=== PATIENT | male | born 1955 | race Caucasian/White ===

== ENCOUNTER 2018-10-29 12:17 | Observation (INO) ==
--- NOTE | 2018-10-29 12:36 | Emergency Department Note ---
ED Disposition Clinical Impression: Altered mental status Qualifiers: Altered mental status type: disorientation Qualified Code(s): R41.0 - Disorientation, unspecified Disposition: Admitted as Observation Condition on Discharge: Fair Referrals: Provider,Referral, [Referring] - - Critical Care Critical Care Time: No Attestation: On 10/29/18, the high probability of a clinically significant, sudden or life threatening deterioration of the following system(s) required my full and direct attention, intervention and personal management. The time I documented below is in addition to time spent performing reported procedures but includes the following listed in this critical care notation. Medical Decision Making - Elpidio Inquiry Pt receiving controlled substance: No Vital Signs: 10/29/18 12:17 10/29/18 12:18 10/29/18 13:17 Temperature 97.5 F L Temperature Source Oral Pulse Rate [Right Brachial] 95 H 102 H 82 Respiratory Rate 16 20 Blood Pressure [Right Arm] 110/75 122/79 102/72 L Blood Pressure Mean [Right Arm] 86 93 82 Blood Pressure Source [Right Arm] Automatic Cuff Automatic Cuff Blood Pressure Position [Right Arm] Sitting Sitting 02 Sat by Pulse Oximetry 97 96 98 Oxygen Delivery Method Room Air Room Air 10/29/18 14:21 Temperature Temperature Source Pulse Rate [Right Brachial] 94 H Respiratory Rate Blood Pressure [Right Arm] 122/88 Blood Pressure Mean [Right Arm] 99 Blood Pressure Source [Right Arm] Blood Pressure Position [Right Arm] 02 Sat by Pulse Oximetry 96 Oxygen Delivery Method Room Air - Lab Data Lab Results 10/29/18 12:45: WBC 9.3, RBC 4.99, Hgb 14.0 L, Hct 44.7, MCV 89.7, MCH 28.1, MCHC 31.4 L, RDW 15.2, Plt Count 244, MPV 8.1, Neut % (Auto) 79.8, Lymph % (Auto ) 13.4, [place] % (Auto) 6.1, Eos % (Auto) 0.3, Baso % (Auto) 0.3, Neut # (Auto) 7.4, Lymph # (Auto) 1.2, [place] # (Auto) 0.6, Eos # (Auto) 0.0, Baso # (Auto) 0.0 10/29/18 12:45: Sodium 140, Potassium 3.8, Chloride 105, Carbon Dioxide 24, Anion Gap 14.8, BUN 9, Creatinine 0.64 L, Estimated Creat Clear 80, Estimated GFR 126, Est GFR ( Amer) 152, Glucose 63 L, Calcium 8.8, Total Bilirubin 0.2, AST 15, ALT 14, Alkaline Phosphatase 136 H, Total Protein 7.3, Albumin 3.5, Globulin 3.8 H, Albumin/Globulin Ratio 0.9 L, Plasma/Serum Alcohol 0 10/29/18 12:45: Troponin I < 0.02 10/29/18 13:40: Urine Color Yellow, Urine Appearance Clear, Urine pH 5.5, Ur Specific [place] 1.020, Urine Protein Negative, Urine Glucose (UA) Negative, Urine Ketones Trace, Urine Blood Negative, Urine Nitrate Negative, Urine Bilirubin Negative, Urine Urobilinogen 0.2, Ur Leukocyte Esterase Negative, Urine RBC None, Urine WBC Occasional, Ur Squamous Epith Cells Occasional, Urine Bacteria Trace 10/29/18 13:40: Urine Opiates Screen Negative, Urine Methadone Screen Negative, Ur Barbituates Screen Negative, Ur Phencyclidine Scrn Negative, Ur Amphetamines Screen Negative, U Benzodiazepines Scrn Negative, Urine Cocaine Screen Negative, U Marijuana (THC) Screen Negative 10/29/18 14:20: POC Glucose 142 H Result diagrams: 10/29/18 12:45 10/29/18 12:45 Orders (Tests/Meds): ED MEDICATIONS Discontinued Medications Generic Name Dose Route Start Last Admin Trade Name Freq PRN Reason Stop Dose Admin Dextrose 50 ml 10/29/18 13:23 10/29/18 13:30 Dextrose 50% 50ml Syringe IVP 10/29/18 13:24 50 ml ONCE ONE Administration - Radiology Data #1 Image(s): Chest Image Reviewed: Yes I have reviewed radiologist's interpretation Preliminary Findings: Normal/NAD - CT Data CT Scan: Head Time Received: 13:[address] Reviewed: Yes: I have viewed the radiologist's interpretation Findings Narrative: FINDINGS: No midline shift or mass effect is evident. No acute intracranial hemorrhage. There is moderate dilatation of the lateral ventricles and 3rd ventricle. The 4th ventricle is not dilated. 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 There is mild mucosal thickening of the ethmoid sinuses. No acute calvarial abnormalities. No mastoid effusion. IMPRESSION: 1. 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 2. No acute intracranial hemorrhage or large territorial infarcts evident. Dictated by: Naman Larkin MD 10/29/2018 12:40 Electronically signed by Naman Larkin MD in [place] 10/29/2018 12:40 - ECG Data Tracing #1 EKG interpreted by Jeffrey Black MD: Rhythm: sinus Rate: 95 [place]: normal Ectopy: none Conduction: QTC [address] Segment Changes: none T Wave Changes: none Q Waves: none No evidence of acute ischemia or injury - Physician Consults Physician Consulted: Garland Sepulveda Time: 14:40 Reason -: Admission Comment/Response: Agrees to admit the patient to the hospital. We discussed the patient's clinical information, including history, exam, laboratory and radiolog y results and ED course. Per hospital procedure, I will write temporary bridge inpatient orders on the patient. Specific orders requested by the admitting physician: Neurochecks, fingerstick before meals and at bedtime, repeat chemistry profile in the morning, hold gabapentin. - Reevaluation(s) Time: 14:25 Reevaluation #1: Mental status unchanged. Speech is mumbling and slightly slurred. States that he is at [facility] in [place]. Medical Decision Narrative: Paperwork sent with patient from [facility] does not include any prior diagnoses. [facility] personnel contacted, they relayed his prior diagnoses per his paperwork at their facility, which does not include hydrocephalus. Felicity cisneros whether hydrocephalus on his CT scan is a new discovery. Patient has not had prior head CT scans here. [facility] portal accessed to see if the patient had previous admissions there with any previous had CT scans. CT scan of the head documented at [facility] in July 2016 showed enlarged lateral ventricles unchanged from a previous scan also done third facility. Therefore, this finding is chronic. General Adult HPI - General Chief complaint: Weakness Stated complaint: slurred speech Time Seen by Provider: 10/29/18 12:35 Mode of Arrival: EMS Limitations: No Limitations Description of Symptoms (Recalled from ER Triage Doc. by RN): Ptb brought in from [facility] with complaints of slurred speech. EMS advised stroke scale negative and advises pt wanted to bring some beer with him, pt denies any pain or complaints at this. Advises he does feel like his speech is a little slow at the moment. PT admits to drinking alcohol. - History of Present Illness HPI narrative: Sent by ambulance from [facility]. Staff report that at 11:00 medications today the patient had slurred speech and seemed confused/disoriented. The patient realizes that he feels confused. Staff report that at 8:00 medications he seemed fine. He denies any other current complaints except feeling tired. Denies any pain. Denies any recent illness including fever, URI symptoms, vomiting, diarrhea. He admits to drinking 2 beers last night. Says he has not had alcohol to drink today, but apparently told EMS personnel that he wanted to bring beer with him to the hospital. - Related Data Allergies Allergy/AdvReac Type Severity Reaction Status Date / Time No Known Allergies Allergy Verified 10/29/18 12:24 [facility] History - Hepatitis A Screen Drug use history?: No High risk sexual behaviors?: No History of sexually transmitted infection?: No Currently employed?: No Childcare worker?: No Do you have indoor plumbing?: Yes Do you have electricity?: Yes Attestation statement:: This patient has been screened for Hepatitis A risk factors. I have reviewed the patient's past medical history: Yes ROS Obtained: Yes All systems reviewed & no additional complaints - Constitutional Constitutional: Reports fatigue, Denies fever(s) - Eyes Eyes: Denies blurry vision, Denies change in vision, Denies diplopia, Reports requires corrective lenses (Reading glasses) - ENT Ears, Nose, Mouth, and Throat: Denies nasal discharge, Denies sore throat - Cardiovascular Cardiovascular: Denies chest pain - Respiratory Respiratory: No cough, No dyspnea - Gastrointestinal Gastrointestingal: Denies: abdominal pain, diarrhea, nausea, vomiting - Musculoskeletal Musculoskeletal: Denies back pain, Denies neck pain - Neurologic Neurologic: Reports confusion, Denies focal weakness, Denies headache(s), Denies numbness Physical Exam - General General appearance: alert, in no apparent distress - Head Head exam: atraumatic, normocephalic, normal inspection - Eye Eye exam: Present: PERRL, nystagmus (lateral, bilaterally) - ENT ENT exam: Present: normal exam, normal oropharynx - Neck Neck exam: Present: normal inspection, full ROM, trachea midline. Absent: meningismus - Chest Chest inspection: Present: normal inspection, symmetric chest wall rise - Respiratory Respiratory exam: Present: normal lung sounds bilaterally. Absent: respiratory distress - Cardiovascular Cardiovascular exam: Present: regular rate, normal rhythm, normal heart sounds - Abdominal Exam Abdominal exam: Present: soft, normal bowel sounds. Absent: distention, tenderness, guarding, rebound - Extremities Exam Extremities exam: Present: other (right BKA) - Neurological Exam Neurological exam: Present: alert, CN II-XII intact, other (oriented to person, year, month. Place = hospital, in [place]). Absent: motor sensory deficit - Psychiatric Psychiatric exam: Present: normal affect, normal mood - Skin Skin exam: Present: warm, dry
[2018-10-29 12:59] LABS: Basophils % 0.3 % (0.1-2.0); Eosinophils % 0.3 % (0.1-12.0); Hematocrit 44.7 % (42.0-52.0); Lymphocytes # 1.2 K/mm3 (0.7-4.5); Lymphocytes % 13.4 % (10-50); Mean Corpuscular HGB Conc 31.4 g/dL (31.8-35.4); Mean Corpuscular Volume 89.7 fl (80-94); Mean Platelet Volume 8.1 fl (7.4-10.4); Monocytes # 0.6 K/mm3 (0.1-1.0); Monocytes % 6.1 % (1.7-9.3); Neutrophils # 7.4 K/mm3 (1.8-7.8); Neutrophils % 79.8 % (37.0-80.0); Platelet Count 244 K/mm3 (142-424); Red Blood Count 4.99 M/mm3 (4.60-6.20); Red Cell Distribution Width 15.2 % (11.5-17.5); White Blood Count 9.3 K/mm3 (4.8-10.8)
[2018-10-29 13:17] LABS: Albumin Level 3.5 gm/dL (3.4-5.0); Albumin/Globulin Ratio 0.9 (1.1-1.8); Anion Gap 14.8 mEq/L (5-15); Bilirubin,Total 0.2 mg/dL (0.2-1.0); Calcium 8.8 mg/dL (8.5-10.1); Globulin 3.8 gm/dl (1.3-3.2); Total Protein,Serum 7.3 gm/dL (6.4-8.2)
[2018-10-29 13:47] LABS: Microscopic, Urine URINE MICROSCOPIC (MICROSCOPIC)
[2018-10-29 13:51] LABS: Appearance,Urine CLEAR (Clear); Bilirubin,Urine Negative (Negative); Blood, Urine Negative (Negative); Color,Urine YELLOW (Yellow); Glucose,Urine (UA) Negative (Negative); Ketones,Urine TRACE (Negative); Leukocyte Esterase,Urine Negative (Negative); PH,Urine 5.5 (5.0-8.5); Protein,Urine Negative (Negative); Urobilinogen,Urine 0.2 EU/dl (0.2)
[2018-10-29 13:59] LABS: Amphetamine/Metha Screen,Urine Negative ng/mL (<1000); Barbiturates Screen,Urine Negative ng/mL (<200); Benzodiazepines Screen,Urine Negative ng/mL (<200); Cannabinoid Screen,Urine Negative ng/mL (<50); Cocaine Screen,Urine Negative ng/mL (<300); Methadone Screen,Urine Negative ng/mL (<300); Opiate Screen,Urine Negative ng/mL (<300); Phencyclidine Screen,Urine Negative ng/mL (<25)
[2018-10-29 14:16] LABS: Bacteria,Urine Trace /lpf; Squamous Epithelial Cell,Urine Occasional #/hpf (0-5); WBC,Urine Occasional #/hpf (0-3)
--- NOTE | 2018-10-29 20:30 | History & Physical Report ---
*Admission Date: 10/29/18 *Chief complaint: altered mental status *History of present illness: this wm fron local snf who was noted to have change in mental status w/o trauma or fever and no known drug ingestion -he was seen in the ed ental status unchanged. Speech is mumbling and slightly slurred. States that he is at [facility] in [place]. Medical Decision Narrative: Paperwork sent with patient from [facility] does not include any prior diagnoses. [facility] personnel contacted, they relayed his prior diagnoses per his paperwork at their facility, which does not include hydrocephalus. Uncertain whether hydrocephalus on his CT scan is a new discovery. Patient has not had prior head CT scans here. [facility] portal accessed to see if the patient had previous admissions there with any previous had CT scans. CT scan of the head documented at [facility] in July 2016 showed enlarged lateral ventricles unchanged from a previous scan also done third facility. Therefore, this finding is c Chief complaint: Weakness Stated complaint: slurred speech Time Seen by Provider: 10/29/18 12:35 Mode of Arrival: EMS Limitations: No Limitations Description of Symptoms (Recalled from ER Triage Doc. by RN): Ptb brought in from [facility] with complaints of slurred speech. EMS advised stroke scale negative and advises pt wanted to bring some beer with him, pt denies any pain or complaints at this. Advises he does feel like his speech is a little slow at the moment. PT admits to drinking alcoho Sent by ambulance from [facility]. Staff report that at 11:00 medications today the patient had slurred speech and seemed confused/disoriented. The patient realizes that he feels confused. Staff report that at 8:00 medications he seemed fine. He denies any other current complaints except feeling tired. Denies any pain. Denies any recent illness including fever, URI symptoms, vomiting, diarrhea. He admits to drinking 2 beers last night. Says he has not had alcohol to drink today, but apparently told EMS personnel that he wanted to bring beer with him t o the hospital. [facility] History I have reviewed the patient's past medical history: Yes *Have you ever received a pneumonia vaccine?: No *Have you received a flu vaccine this season?: No Amputation: Yes (RIGHT BELOW KNEE) Fractures: Yes - *Social History Educational Level: Attended College Smoking Status: Current every day smoker Tobacco Type: cigarettes # Packs/Day (cigarettes): 1 Alcohol Intake: current Alcohol Intake Frequency:: a few times a week Substance Use Type: marijuana Last Used Substance: unknown *Occupational Status:: retired, disabled Housing: assisted living facility *Travel in the last 8 weeks: None Family Hx:: Non-contributory Review of Systems - Review of Systems Review of systems:: pertinent systems reviewed and negative unless documented below - Constitutional Denies fever(s), Denies headache(s) - Eyes Denies change in vision - ENT Denies dizziness - *Cardiovascular Denies chest pain at rest - *Respiratory Denies cough - *Gastrointestinal Denies abdominal pain - *Genitourinary Denies blood in urine - *Musculoskeletal Reports other (s/p rt bka), Denies joint pain - Integumentary/Breasts Denies rash - *Neurologic Reports confusion, Denies localized weakness, Denies headache(s), Denies nu mbness Meds Home Medications Medication Instructions Recorded Confirmed Type Acetaminophen [Tylenol] 650 mg PO DAILY 10/29/18 10/29/18 History Aspirin 81 mg PO DAILY 10/29/18 10/29/18 History Atorvastatin Calcium [Atorvastatin 40 mg PO HS 10/29/18 10/29/18 History 40mg Tab] Ferrous Sulfate [Ferrous Sulfate 325 mg PO DAILY 10/29/18 10/29/18 History 325mg Tablet] Gabapentin [Gabapentin 100mg Cap] 100 mg PO TID 10/29/18 10/29/18 History Ibuprofen [Ibuprofen 600mg 600 mg PO NEEDED PRN 10/29/18 10/29/18 History Tablet] Metoprolol Succinate 25 mg PO DAILY 10/29/18 10/29/18 History Ondansetron HCl [Ondansetron 4mg 4 mg PO NEEDED PRN 10/29/18 10/29/18 History Tablet] Sennosides [Senna] 8.6 mg PO DAILY 10/29/18 10/29/18 History Allergies Allergy/AdvReac Type Severity Reaction Status Date / Time No Known Allergies Allergy Verified 10/29/18 12:24 Exam Vital signs and Labs for Last 24 Hours: Temp Pulse Resp BP Pulse Ox 98.8 F 94 H 16 110/81 99 10/29/18 20:10 10/29/18 20:10 10/29/18 20:10 10/29/18 20:10 10/29/18 20:10 Laboratory Results - last 24 hr 10/29/18 12:45: WBC 9.3, RBC 4.99, Hgb 14.0 L, Hct 44.7, MCV 89.7, MCH 28.1, MCHC 31.4 L, RDW 15.2, Plt Count 244, MPV 8.1, Neut % (Auto) 79.8, Lymph % (Auto) 13.4, [place] % (Auto) 6.1, Eos % (Auto) 0.3, Baso % (Auto) 0.3, Neut # (Auto) 7.4, Lymph # (Auto) 1.2, [place] # (Auto) 0.6, Eos # (Auto) 0.0, Baso # (Auto) 0.0 10/29/18 12:45: Sodium 140, Potassium 3.8, Chloride 105, Carbon Dioxide 24, Anion Gap 14.8, BUN 9, Creatinine 0.64 L, Estimated Creat Clear 80, Estimated GFR 126, Est GFR ( Amer) 152, Glucose 63 L, Calcium 8.8, Total Bilirubin 0.2, AST 15, ALT 14, Alkaline Phosphatase 136 H, Total Protein 7.3, Albumin 3.5, Globulin 3.8 H, Albumin/Globulin Ratio 0.9 L, Plasma/Serum Alcohol 0 10/29/18 12:45: Troponin I < 0.02 10/29/18 13:40: Urine Color Yellow, Urine Appearance Clear, Urine pH 5.5, Ur Specific [place] 1.020, Urine Protein Negative, Urine Glucose (UA) Negative, Urine Ketones Trace, Urine Blood Negative, Urine Nitrate Negative, Urine Bilirubin Negative, Urine Urobilinogen 0.2, Ur Leukocyte Esterase Negative, Urine RBC None, Urine WBC Occasional, Ur Squamous Epith Cells Occasional, Urine Bacteria Trace 10/29/18 13:40: Urine Opiates Screen Negative, Urine Methadone Screen Negative, Ur Barbituates Screen Negative, Ur Phencyclidine Scrn Negative, Ur Amphetamines Screen Negative, U Benzodiazepines Scrn Negative, Urine Cocaine Screen Negative, U Marijuana (THC) Screen Negative 10/29/18 14:20: POC Glucose 142 H I & O for Last 24 hours: Intake & Output 10/27/18 10/28/18 10/29/18 10/30/18 11:59 11:59 11:59 11:59 Intake Total 360 / 360 Balance 360 / 360 Weight 185 lb 3.2 oz - Constitutional no acute distress - *Routine HEENT Exam Head: Present: normocephalic Eye: Present: EOMI, PERRL ENT: Present: mucous membranes dry - *Routine Neck Exam Present: supple, carotid bruit. Absent: JVD - *Routine Respiratory Exam Present: CTA bilaterally - *Routine Cardiovascular Exam Present: RRR, murmur, S4 - *Routine Abdominal Exam Present: soft - *Routine Extremities Exam Comments: dec puise and coolness lt lower ext with faint pulse - *Routine Skin Exam Present: intact - *Routine Neurological Exam Present: alert, oriented X3, CN II-XII intact - Routine Psychiatric Exam Present: normal affect. Absent: good insight Assessment and Plan (1) Altered mental status Current visit: Yes Status: Acute Qualifiers: Altered mental status type: disorientation Qualified Code(s): R41.0 - Disorientation, unspecified Category: Medical Code(s): R41.82 - Altered mental status, unspecified (2) Hydrocephalus Current visit: Yes Status: Acute Qualifiers: Hydrocephalus type: unspecified Qualified Code(s): G91.9 - Hydrocephalus, unspecified Category: Medical Code(s): G91.9 - Hydrocephalus, unspecified (3) TIA (transient ischemic attack) Current visit: Yes Status: Acute Category: Medical Code(s): G45.9 - Transient cerebral ischemic attack, unspecified (4) PVD (peripheral vascular disease) Current visit: Yes Status: Acute Category: Medical Code(s): I73.9 - Peripheral vascular disease, unspecified (5) Tobacco use Current visit: Yes Status: Acute Category: Medical Code(s): Z72.0 - Tobacco use (6) Neuropathic pain Current visit: Yes Status: Acute Category: Medical Code(s): M79.2 - Neuralgia and neuritis, unspecified
[2018-10-30 07:27] LABS: Anion Gap 12.5 mEq/L (5-15); Calcium 8.4 mg/dL (8.5-10.1)
--- NOTE | 2018-10-30 08:47 | Progress Note ---
Internal Medicine - PN: Subj *Date: 10/31/18 *Time: 08:06 Interval history: doing better with speech better and near baseline Exam Vital signs and Labs for Last 24 Hours: Temp Pulse Resp BP Pulse Ox 98.0 F 74 18 119/73 98 10/30/18 07:31 10/30/18 07:31 10/30/18 07:31 10/30/18 07:31 10/30/18 07:31 Laboratory Results - last 24 hr 10/29/18 12:45: WBC 9.3, RBC 4.99, Hgb 14.0 L, Hct 44.7, MCV 89.7, MCH 28.1, MCHC 31.4 L, RDW 15.2, Plt Count 244, MPV 8.1, Neut % (Auto) 79.8, Lymph % (Auto) 13.4, [place] % (Auto) 6.1, Eos % (Auto) 0.3, Baso % (Auto) 0.3, Neut # (Auto) 7.4, Lymph # (Auto) 1.2, [place] # (Auto) 0.6, Eos # (Auto) 0.0, Baso # (Auto) 0.0 10/29/18 12:45: Sodium 140, Potassium 3.8, Chloride 105, Carbon Dioxide 24, Anio n Gap 14.8, BUN 9, Creatinine 0.64 L, Estimated Creat Clear 80, Estimated GFR 126, Est GFR ( Amer) 152, Glucose 63 L, Calcium 8.8, Total Bilirubin 0.2, AST 15, ALT 14, Alkaline Phosphatase 136 H, Total Protein 7.3, Albumin 3.5, Globulin 3.8 H, Albumin/Globulin Ratio 0.9 L, Plasma/Serum Alcohol 0 10/29/18 12:45: Troponin I < 0.02 10/29/18 13:40: Urine Color Yellow, Urine Appearance Clear, Urine pH 5.5, Ur Specific [place] 1.020, Urine Protein Negative, Urine Glucose (UA) Negative, Urine Ketones Trace, Urine Blood Negative, Urine Nitrate Negative, Urine Bilirubin Negative, Urine Urobilinogen 0.2, Ur Leukocyte Esterase Negative, Urine RBC None, Urine WBC Occasional, Ur Squamous Epith Cells Occasional, Urine Bacteria Trace 10/29/18 13:40: Urine Opiates Screen Negative, Urine Methadone Screen Negative, Ur Barbituates Screen Negative, Ur Phencyclidine Scrn Negative, Ur Amphetamines Screen Negative, U Benzodiazepines Scrn Negative, Urine Cocaine Screen Negative, U Marijuana (THC) Screen Negative 10/29/18 14:20: POC Glucose 142 H 10/29/18 16:45: POC Glucose 169 H 10/29/18 20:31: POC Glucose 92 10/30/18 06:00: POC Glucose 99 10/30/18 06:13: Sodium 140, Potassium 3.5, Chloride 106, Carbon Dioxide 25, Anion Gap 12.5, BUN 10, Creatinine 0.63 L, Estimated Creat Clear 90, Estimated GFR 128, Est GFR ( Amer) 155, Glucose 102 D, Calcium 8.4 L I & O for Last 24 hours: Intake & Output 10/27/18 10/28/18 10/29/18 10/30/18 11:59 11:59 11:59 11:59 Intake Total 1076 / 1076 Balance 1076 / 1076 Weight 190 lb 4 oz - Constitutional no acute distress - *Routine HEENT Exam Head: Present: normocephalic Eye: Present: EOMI, PERRL ENT: Present: mucous membranes dry - *Routine Neck Exam Present: supple - *Routine Respiratory Exam Present: CTA bilaterally - *Routine Cardiovascular Exam Present: RRR - *Routine Abdominal Exam Present: soft - *Routine Extremities Exam Present: extremity cold to touch - *Routine Skin Exam Present: intact - *Routine Neurological Exam Present: alert, oriented X3, CN II-XII intact - Routine Psychiatric Exam Present: normal affect Assessment and Plan (1) Altered mental status Current visit: Yes Status: Acute Qualifiers: Altered mental status type: disorientation Qualified Code(s): R41.0 - Disorientation, unspecified Category: Medical Code(s): R41.82 - Altered mental status, unspecified (2) Hydrocephalus Current visit: Yes Status: Acute Qualifiers: Hydrocephalus type: unspecified Qualified Code(s): G91.9 - Hydrocephalus, unspecified Category: Medical Code(s): G91.9 - Hydrocephalus, unspecified (3) TIA (transient ischemic attack) Current visit: Yes Status: Acute Category: Medical Code(s): G45.9 - Transient cerebral ischemic attack, unspecified (4) PVD (peripheral vascular disease) Current visit: Yes Status: Acute Category: Medical Code(s): I73.9 - Peripheral vascular disease, unspecified (5) Tobacco use Current visit: Yes Status: Acute Category: Medical Code(s): Z72.0 - Tobacco use (6) Neuropathic pain Current visit: Yes Status: Acute Category: Medical Code(s): M79.2 - Neuralgia and neuritis, unspecified (7) S/P BKA (below knee amputation) unilateral Current visit: Yes Status: Acute Category: Surgical Code(s): Z89.519 - Acquired absence of unspecified leg below knee
--- NOTE | 2018-10-30 09:11 | Pharmacy Consult Notes ---
[facility] Pharmacy VTE Monitoring - Patient Demographics Admission date: 10/29/18 Report Date: 10/30/18 Time: 09:10 Allergies/Adverse Reactions: Patient Allergies No Known Allergies Allergy (Verified 10/29/18 12:24) Height: 1.83 m Weight: 86.296 kg Patient Problems: Current Active Problems Altered mental status (Acute) Hydrocephalus (Acute) TIA (transient ischemic attack) (Acute) PVD (peripheral vascular disease) (Acute) Tobacco use (Acute) Neuropathic pain (Acute) - VTE Risk Labs: VTE Related Lab Results Hgb 14.0 g/dL (14.1-18.0) L 10/29/18 12:45 Hct 44.7 % (42.0-52.0) 10/29/18 12:45 Plt Count 244 K/mm3 (142-424) 10/29/18 12:45 BUN 10 mg/dL (7-18) 10/30/18 06:13 Creatinine 0.63 mg/dL (0.70-1.30) L 10/30/18 06:13 Estimated Creat Clear 90 mL/min (50-200) 10/30/18 06:13 VTE Score: 5 VTE Risk Level: Low Risk - Prophylaxis VTE Prophylaxis Ordered?: Yes Types of VTE Prophylaxis: TEDS Knee High Location of Applied Device: Bilateral Lower Extremeties - VTE Diagnosis Confirmed Treatment or plan recommended: Continue Current Treatment
--- NOTE | 2018-10-30 15:37 | Electrocardiograph Report ---
APPROVED REPORT Exam: Resting ECG HR:95 bpm ECG Measurements Heart Rate 95 AXES [place] 162 P 49 QRSd 82 QRS -5 QT 402 T37 QTc 505 <Conclusion> Normal sinus rhythm Cannot rule out Inferior infarct, age undetermined Prolonged QT Abnormal ECG Electronically signed by : Santos Haque, 10/30/2018 15:37:02
[2018-10-31 08:00] LABS: Basophils # 0.1 K/mm3 (0-0.2); Basophils % 0.7 % (0.1-2.0); Eosinophils # 0.1 K/mm3 (0.0-0.4); Eosinophils % 1.3 % (0.1-12.0); Hematocrit 46.6 % (42.0-52.0); Hemoglobin 14.5 g/dL (14.1-18.0); Lymphocytes # 2.5 K/mm3 (0.7-4.5); Lymphocytes % 28.1 % (10-50); Mean Corpuscular HGB Conc 31.1 g/dL (31.8-35.4); Mean Corpuscular Volume 90.5 fl (80-94); Mean Platelet Volume 8.6 fl (7.4-10.4); Monocytes # 0.5 K/mm3 (0.1-1.0); Monocytes % 5.6 % (1.7-9.3); Neutrophils # 5.6 K/mm3 (1.8-7.8); Neutrophils % 64.3 % (37.0-80.0); Platelet Count 229 K/mm3 (142-424); Red Blood Count 5.15 M/mm3 (4.60-6.20); Red Cell Distribution Width 15.3 % (11.5-17.5); White Blood Count 8.7 K/mm3 (4.8-10.8)
[2018-10-31 09:38] LABS: Anion Gap 15.9 mEq/L (5-15); Calcium 8.9 mg/dL (8.5-10.1)
--- NOTE | 2018-10-31 10:24 | Cardiology Report ---
APPROVED REPORT Music Mixer: Kaylyn Leo COLOR TESTER Laterality: Bilateral Study Quality: Fair Indications: tia, CVA/TIA: Motor Deficit, Risk Factors TIA/CVA History Smoking Doppler Spectral Velocity Analysis ECA (R) 97.40/ cm/sdICA (L) 80.00/30.90 cm/s dICA (R) 79.20/30.20 cm/smICA (L) 153.00/33.70 cm/s Beronica (R) 66.60/23.90 cm/spICA (L) 220.00/75.80 cm/s pICA (R) 77.90/20.10 cm/sdCCA (L) 34.50/13.50 cm/s dCCA (R) 58.90/22.00 cm/spCCA (L) 40.20/13.10 cm/s pCCA (R) 107.00/26.70 cm/sVert (L) 44.10/ cm/s Vert (R) 51.10/ cm/Johnson/CCA 6.38 ICA/CCA 1.34 Findings Duplex evaluation demonstrates stenosis of the right proximal internal carotid artery in the range of 20-49%. Duplex evaluation demonstrates stenosis of the left proximal internal carotid artery in the range of 50-69% . Unable to visualize Left ECA. Plaque noted in LCCA. Christiano MOYER notified. Conclusion 1..stenosis of the right proximal internal carotid artery in the range of 20-49%. 2..stenosis of the left proximal internal carotid artery at least 60--70% range .based on elevated 220 cm/sec flow velocity proximal Left ICA ; However also note the marked elevated ICA/ CCA ratio 6.38 which is concerning , & suggestive of potential more severe stenosis Left carotid system ; Could in part reflect relative slow flow Left CCA due to generous focal plaque imaged today at left CCA . 3. suggest / consider CTA carotids to further evaluate these abnormal observations, &to better evaluate eintire Left CCA as well as Left ICA- particularly if TIA/CVA symptoms Electronically signed by : Orlando Greene MD 10/31/2018 10:24:16
--- NOTE | 2018-10-31 15:09 | Discharge Summary ---
General - General Admission date:: 10/29/18 Discharge date: 10/31/18 HPI HPI: this wm fron local intermediate who was noted to have change in mental status w/o trauma or fever and no known drug ingestion -he was seen in the ed ental status unchanged. Speech is mumbling and slightly slurred. States that he is at [facility] in [place]. Medical Decision Narrative: Paperwork sent with patient from [facility] does not include any prior diagnoses. [facility] personnel contacted, they relayed his prior diagnoses per his paperwork at their facility, which does not include hydrocephalus. Uncertain whether hydrocephalus on his CT scan is a new discovery. Patient has not had prior head CT scans here. [facility] portal accessed to see if the patient had previous admissions there with any previous had CT scans. CT scan of the head documented at [facility] in July 2016 showed enlarged lateral ventricles unchanged from a previous scan also done third facility. Therefore, this finding is c Chief complaint: Weakness Stated complaint: slurred speech Time Seen by Provider: 10/29/18 12:35 Mode of Arrival: EMS Limitations: No Limitations Description of Symptoms (Recalled from ER Triage Doc. by RN): Ptb brought in from [facility] with complaints of slurred speech. EMS advised stroke scale negative and advises pt wanted to bring some beer with him, pt denies any pain or complaints at this. Advises he does feel like his speech is a little slow at the moment. PT admits to drinking alcoho Sent by ambulance from [facility]. Staff report that at 11:00 medications today the patient had slurred speech and seemed confused/disoriented. The patient realizes that he feels confused. Staff report that at 8:00 medications he seemed fine. He denies any other current complaints except feeling tired. Denies any pain. Denies any recent illness including fever, URI symptoms, vomiting, diarrhea. He admits to drinking 2 beers last night. Says he has not had alcohol to drink today, but apparently told EMS personnel that he wanted to bring beer with him to the hospital. Hospital Course Hospital Course: py has improved and back to baseline and had eval of carotid and showed sig disease on lt - pt has pvd and old changes in brain and labs stable and was ramy diet and seen by therapy - he will be d/c and follow up with vascular surg as op and place on asa - Objective Vital signs: Temp Pulse Resp BP Pulse Ox 98.0 F 65 20 142/79 H 97 10/31/18 07:43 10/31/18 07:43 10/31/18 07:43 10/31/18 07:43 10/31/18 07:43 no acute distress - *Routine HEENT Exam Head: Present: normocephalic Eye: Present: EOMI, PERRL ENT: Present: mucous membranes dry - *Routine Neck Exam Present: carotid bruit, trachea midline. Absent: JVD - *Routine Respiratory Exam Present: CTA bilaterally - *Routine Cardiovascular Exam Present: RRR, murmur, S4 - *Routine Abdominal Exam Present: soft - *Routine Extremities Exam Present: pulses intact, amputation - *Routine Skin Exam Present: intact - *Routine Neurological Exam Present: alert, oriented X3, CN II-XII intact - Routine Psychiatric Exam Present: normal affect Results Labs on day of discharge: Labs from last 24 hours 10/31/18 10/31/18 10/31/18 07:44 07:44 06:20 WBC 8.7 RBC 5.15 Hgb 14.5 Hct 46.6 MCV 90.5 MCH 28.2 MCHC 31.1 L RDW 15.3 Plt Count 229 MPV 8.6 Neut % (Auto) 64.3 Lymph % (Auto) 28.1 [place] % (Auto) 5.6 Eos % (Auto) 1.3 Baso % (Auto) 0.7 Neut # (Auto) 5.6 Lymph # (Auto) 2.5 [place] # (Auto) 0.5 Eos # (Auto) 0.1 Baso # (Auto) 0.1 Sodium 140 Potassium 3.9 Chloride 104 Carbon Dioxide 24 Anion Gap 15.9 H BUN 10 Creatinine 0.79 D Estimated Creat Clear 90 Estimated GFR 98 Est GFR ( Amer) 119 D Glucose 122 H POC Glucose 90 Calcium 8.9 10/30/18 10/30/18 19:56 16:30 WBC RBC Hgb Hct MCV MCH MCHC RDW Plt Count MPV Neut % (Auto) Lymph % (Auto) [place] % (Auto) Eos % (Auto) Baso % (Auto) Neut # (Auto) Lymph # (Auto) [place] # (Auto) Eos # (Auto) Baso # (Auto) Sodium Potassium Chloride Carbon Dioxide Anion Gap BUN Creatinine Estimated Creat Clear Estimated GFR Est GFR ( Amer) Glucose POC Glucose 119 H 94 Calcium DS: Diagnosis - Discharge Diagnosis (1) Altered mental status Status: Acute (2) Hydrocephalus Status: Acute (3) TIA (transient ischemic attack) Status: Acute (4) PVD (peripheral vascular disease) Status: Acute (5) Tobacco use Status: Acute (6) Neuropathic pain Status: Acute (7) S/P BKA (below knee amputation) unilateral Status: Acute (8) Carotid arterial disease Status: Acute Discharge Plan - Patient Discharge Instructions ACTIVITY: Continue current activity DIET: continue same diet Patient Instructions: DI for Altered Mental Status - Follow up Plan Disposition: Home, Self-Intermediate Medications: Home Medications Medication Instructions Recorded Confirmed Type Acetaminophen [Tylenol] 650 mg PO Q6HP PRN 10/29/18 10/30/18 History Aspirin 81 mg PO DAILY 10/29/18 10/29/18 History Atorvastatin Calcium [Atorvastatin 40 mg PO HS 10/29/18 10/29/18 History 40mg Tab] Ferrous Sulfate [Ferrous Sulfate 325 mg PO DAILY 10/29/18 10/29/18 History 325mg Tablet] Gabapentin [Gabapentin 100mg Cap] 200 mg PO TID 10/29/18 10/30/18 History Ibuprofen [Ibuprofen 600mg 600 mg PO Q6HP PRN 10/29/18 10/30/18 History Tablet] Metoprolol Succinate 25 mg PO DAILY 10/29/18 10/29/18 History Ondansetron HCl [Ondansetron 4mg 4 mg PO Q6HP PRN 10/29/18 10/30/18 History Tablet] Sennosides [Senna] 17.2 mg PO HS 10/29/18 10/30/18 History Lidocaine [Aspercreme] 1 each TP DAILY 10/30/18 10/30/18 History Polyethylene Glycol 3350 [Miralax 17 gm PO DAILY 10/30/18 10/30/18 History 17gm Packet] Prescriptions/Medication Reconciliation: Continued Atorvastatin Calcium [Atorvastatin 40mg Tab] 40 mg PO HS Sennosides [Senna] 17.2 mg PO HS Ondansetron HCl [Ondansetron 4mg Tablet] 4 mg PO Q6HP PRN PRN Reason: Nausea Metoprolol Succinate 25 mg PO DAILY Gabapentin [Gabapentin 100mg Cap] 200 mg PO TID Aspirin 81 mg PO DAILY Acetaminophen [Tylenol] 650 mg PO Q6HP PRN PRN Reason: As Needed For Fever Or Pain Lidocaine [Aspercreme] 1 each TP DAILY Ferrous Sulfate [Ferrous Sulfate 325mg Tablet] 325 mg PO DAILY Polyethylene Glycol 3350 [Miralax 17gm Packet] 17 gm PO DAILY Discontinued Ibuprofen [Ibuprofen 600mg Tablet] 600 mg PO Q6HP PRN PRN Reason: pain - Problem Reconciliation Problems Reviewed?: Yes
== END 2018-10-31 16:28 | disposition home or self-care (01) ==
LOC: ER 12:17 → 2ND 12:17
PROVIDERS: ADMIT Internal Medicine Adolescent Medicine; ATTEND Emergency Medicine
CPT/HCPCS: 36415; 70450; 70498; 71010; 71045; 80048; 80053; 80305; 81001; 82962; 84484; 85025; 93005; 93880; 93923; 97162; 99285; G0378; Q9967